=== PATIENT | male | born 1965 | race Caucasian/White ===

== ENCOUNTER 2022-11-15 13:58 | Inpatient (IN) | payer OTHER ==
[2022-11-15 14:23] VITALS: BMI 26.4
[2022-11-15] MEDS ORDERED: BISMUTH SUBSALICYLATE 524 MG/30 ML PO PRN (15:05)
[2022-11-15] MEDS ORDERED: POLYETHYLENE GLYCOL (HEALTHYLAX) 3350 17 GM PACKET PO PRN (15:05)
[2022-11-15] MEDS ORDERED: BENZOCAINE/MENTHOL (CHLORASEPTIC ) LOZENGE MM PRN (15:05)
[2022-11-15] MEDS ORDERED: BUPRENORPHINE HCL 150 MCG, BUPRENORPHINE HCL 75 MCG BC ONE (15:05)
[2022-11-15] MEDS ORDERED: diazePAM 5 MG TABLET PO PRN (15:05)
[2022-11-15] MEDS ORDERED: guaiFENesin 600 MG TABLET.ER (FP) PO PRN (15:05)
[2022-11-15] MEDS ORDERED: cloNIDine HCL 0.1 MG TABLET PO ONE (15:05)
[2022-11-15] MEDS ORDERED: LOPERAMIDE HCL 2 MG CAPSULE PO PRN (15:05)
[2022-11-15] MEDS ORDERED: BUPRENORPHINE HCL 150 MCG, BUPRENORPHINE HCL 75 MCG BC PRN (15:05)
[2022-11-15] MEDS ORDERED: ONDANSETRON *ODT* 4 MG TABLET SL PRN (15:05)
[2022-11-15] MEDS ORDERED: NICOTINE 10 MG CARTRIDGE (INHALER) IH PRN (15:05)
[2022-11-15] MEDS ORDERED: IBUPROFEN 600 MG TABLET (FP) PO PRN (15:05)
[2022-11-15] MEDS ORDERED: DICYCLOMINE HCL 10 MG CAPSULE PO PRN (15:05)
[2022-11-15] MEDS ORDERED: NALOXONE HCL 0.4 MG/ML VIAL IM PRN (15:05)
[2022-11-15] MEDS ORDERED: BENZONATATE 200 MG CAPSULE PO PRN (15:05)
[2022-11-15] MEDS ORDERED: IBUPROFEN 400 MG TABLET (FP) PO PRN (15:05)
[2022-11-15] MEDS ORDERED: MAG HYDROX/AL HYDROX/SIMETH 30 ML UNIT-DOSE CUP PO PRN (15:05)
[2022-11-15] MEDS ORDERED: NALOXONE HCL (KLOXXADO) 8 MG SPRAY NS PRN (15:05)
[2022-11-15] MEDS ORDERED: ACETAMINOPHEN 325 MG TABLET (FP) PO PRN (15:05)
[2022-11-15] MEDS ORDERED: hydrOXYzine PAMOATE 25 MG CAPSULE (FP) PO PRN (15:05)
[2022-11-15] MEDS ORDERED: MAGNESIUM HYDROX 2400MG/30ML ORAL SUSPENSION 30 ML CUP PO PRN (15:05)
[2022-11-15] MEDS ORDERED: BUPRENORPHINE HCL 150 MCG FILM BC ONE (16:57)
[2022-11-15] MEDS ORDERED: BUPRENORPHINE HCL 75 MCG FILM BC ONE (16:58)
[2022-11-15] MEDS ORDERED: cloNIDine HCL 0.1 MG TABLET ONE (16:58)
[2022-11-15] MEDS ORDERED: TUBERCULIN PPD 5 TU/0.1ML VIAL ID ONE (17:40)
[2022-11-15] MEDS: PRENATAL VITAMINS W/ FOLIC ACID TABLET (FP) PO SCH (17:52)
[2022-11-15] MEDS: NICOTINE 14 MG/24 HOURS TOPICAL PATCH TD SCH (17:52)
[2022-11-15] MEDS: MELATONIN 5 MG TABLETS PO SCH (22:47)
[2022-11-15] MEDS: THIAMINE HCL 100 MG TABLET (FP) PO SCH (22:47)
[2022-11-15] MEDS: METHOCARBAMOL 500 MG TABLET PO PRN (22:48)
[2022-11-16] MEDS ORDERED: BUPRENORPHINE HCL 150 MCG, BUPRENORPHINE HCL 75 MCG BC PRN
[2022-11-16] MEDS: BUPRENORPHINE HCL 150 MCG, BUPRENORPHINE HCL 75 MCG BC SCH ×2 (06:09→18:02)
[2022-11-16] MEDS: NICOTINE 14 MG/24 HOURS TOPICAL PATCH TD SCH (10:49)
[2022-11-16] MEDS: PRENATAL VITAMINS W/ FOLIC ACID TABLET (FP) PO SCH (10:49)
[2022-11-16 11:39] LABS: CALCIUM 9.1 mg/dL (8.5-10.1)
[2022-11-16 11:40] LABS: ALBUMIN 3.9 g/dl (3.4-5.0); BLOOD UREA NITROGEN 15.1 mg/dL (7-18); HEMATOCRIT 38.9 % (35.4-49); HEMOGLOBIN 13.4 GM/dL (11.7-16.9); MCH 31.9 pg (25.7-33.7); MCHC 34.4 g/dl (32.0-35.9); MEAN CELL VOLUME 92.7 fl (80-96); MEAN PLT VOLUME 9.8 fl (7.5-11.1); PLATELET COUNT 215 10^3/uL (134-434); RDW 13.9 % (11.9-15.9); WHITE BLOOD COUNT 10.8 K/mm3 (4.0-10.0)
[2022-11-16 11:43] LABS: CREATININE 1.1 mg/dL (0.55-1.3)
[2022-11-16 11:44] LABS: TOT PROT 7.2 g/dl (6.4-8.2)
[2022-11-16 11:45] LABS: BILIRUBIN,TOTAL 0.6 mg/dL (0.2-1)
[2022-11-16] MEDS ORDERED: ONDANSETRON *ODT* 4 MG TABLET SL PRN (20:50)
[2022-11-16] MEDS ORDERED: TRIMETHOBENZAMIDE HCL 200MG/2ML INJ IM ONE (22:37)
[2022-11-16] MEDS ORDERED: methaDONE HCL 10 MG TABLET (FOR DETOX USE ONLY) PO ONE (23:10)
[2022-11-16] MEDS ORDERED: diazePAM 5 MG TABLET PO PRN (23:11)
[2022-11-16] MEDS: METHOCARBAMOL 500 MG TABLET PO PRN (23:28)
[2022-11-16] MEDS: cloNIDine HCL 0.1 MG TABLET PO PRN (23:28)
[2022-11-16] MEDS: MELATONIN 5 MG TABLETS PO SCH (23:28)
[2022-11-16] MEDS: THIAMINE HCL 100 MG TABLET (FP) PO SCH (23:28)
[2022-11-17] MEDS ORDERED: BUPRENORPHINE HCL 450 MCG FILM BC SCH (06:00)
[2022-11-17] MEDS ORDERED: methaDONE HCL 10 MG TABLET (FOR DETOX USE ONLY) PO ONE (10:00)
[2022-11-17] MEDS: PRENATAL VITAMINS W/ FOLIC ACID TABLET (FP) PO SCH (10:51)
[2022-11-17] MEDS: NICOTINE 14 MG/24 HOURS TOPICAL PATCH TD SCH (10:54)
[2022-11-17] MEDS ORDERED: TRIMETHOBENZAMIDE HCL 200MG/2ML INJ IM PRN (11:35)
[2022-11-17 15:58] VITALS: RESP 18
[2022-11-17] MEDS: METHOCARBAMOL 500 MG TABLET PO PRN (19:14)
[2022-11-17] MEDS: cloNIDine HCL 0.1 MG TABLET PO PRN (19:14)
[2022-11-17 19:50] VITALS: BP 136/66; PULSE 74; TEMP 97.6
[2022-11-18] MEDS ORDERED: BUPRENORPHINE/NALOXONE 4 MG/1 MG FILM PACKET SL SCH (06:00)
[2022-11-19] MEDS ORDERED: BUPRENORPHINE/NALOXONE 8 MG/2 MG FILM PACKET SL ONE (06:00)
== END 2022-11-17 19:50 | disposition left against medical advice (07) | DRG 770 ==
LOC: YASAS 13:58 → Y3N 15:46
PROVIDERS: ADMIT Allergy & Immunology; ATTEND Surgery
PROC: HZ2ZZZZ Detoxification Services for Substance Abuse Treatment (ICD-10-PCS; principal; 2022-11-15)
DX: F11.23 Opioid dependence with withdrawal (principal); F10.10 Alcohol abuse, uncomplicated; F14.10 Cocaine abuse, uncomplicated; F17.210 Nicotine dependence, cigarettes, uncomplicated; M54.40 Lumbago with sciatica, unspecified side; G89.29 Other chronic pain; M50.920 Unspecified cervical disc disorder, mid-cervical region, unspecified level
CPT/HCPCS: 36415; 80053; 85027; 86780; 93005; 93010; C9803-CS; Q0162; U0003; U0005

== ENCOUNTER 2024-08-05 13:29 | Inpatient (IN) | payer BC ==
[2024-08-05] MEDS ORDERED: POLYETHYLENE GLYCOL (HEALTHYLAX) 3350 17 GM PACKET PO PRN (15:28)
[2024-08-05] MEDS ORDERED: MAGNESIUM HYDROX 2400MG/30ML ORAL SUSPENSION 30 ML CUP PO PRN (15:28)
[2024-08-05] MEDS ORDERED: IBUPROFEN 400 MG TABLET (FP) PO PRN (15:28)
[2024-08-05] MEDS ORDERED: ACETAMINOPHEN 325 MG TABLET (FP) PO PRN (15:28)
[2024-08-05] MEDS ORDERED: ONDANSETRON *ODT* 4 MG TABLET SL PRN (15:28)
[2024-08-05] MEDS ORDERED: BENZOCAINE/MENTHOL (CHLORASEPTIC ) LOZENGE MM PRN (15:28)
[2024-08-05] MEDS ORDERED: BENZONATATE 200 MG CAPSULE PO PRN (15:28)
[2024-08-05] MEDS ORDERED: methaDONE HCL 10 MG TABLET (FOR DETOX USE ONLY) PO PRN (15:28)
[2024-08-05] MEDS ORDERED: guaiFENesin 600 MG TABLET.ER (FP) PO PRN (15:28)
[2024-08-05] MEDS ORDERED: DICYCLOMINE HCL 10 MG CAPSULE PO PRN (15:28)
[2024-08-05] MEDS ORDERED: IBUPROFEN 600 MG TABLET (FP) PO PRN (15:28)
[2024-08-05] MEDS ORDERED: NALOXONE (NARCAN) HCL 4 MG/0.1 ML SPRAY NS PRN (15:28)
[2024-08-05] MEDS ORDERED: MAG HYDROX/AL HYDROX/SIMETH 30 ML UNIT-DOSE CUP PO PRN (15:28)
[2024-08-05] MEDS ORDERED: LOPERAMIDE HCL 2 MG CAPSULE PO PRN (15:28)
[2024-08-05] MEDS ORDERED: BISMUTH SUBSALICYLATE 524 MG/30 ML PO PRN (15:28)
[2024-08-05 16:44] VITALS: BMI 25.7
[2024-08-05] MEDS ORDERED: methaDONE HCL 10 MG TABLET (FOR DETOX USE ONLY) ONE (17:30)
[2024-08-05] MEDS: methaDONE HCL 10 MG TABLET (FOR DETOX USE ONLY) PO ONE (17:35)
[2024-08-05] MEDS: NICOTINE 21 MG/24 HOURS TOPICAL PATCH TD SCH (18:30)
[2024-08-05] MEDS: diazePAM 5 MG TABLET PO SCH (22:18)
[2024-08-05] MEDS: CARVEDILOL 6.25 MG TABLET (FP) PO SCH (22:18)
[2024-08-05] MEDS: MELATONIN 5 MG TABLETS PO SCH (22:18)
[2024-08-05] MEDS: ATORVASTATIN CA 80 MG TABLET (FP) PO SCH (22:18)
[2024-08-05] MEDS: THIAMINE 100 MG TABLET PO SCH (22:18)
[2024-08-06] MEDS: SACUBITRIL/VALSARTAN 49 MG-51 MG TABLET PO SCH (00:04)
[2024-08-06] MEDS: LEVOTHYROXINE 100 MCG, LEVOTHYROXINE 50 MCG PO SCH (06:42)
[2024-08-06] MEDS ORDERED: LEVOTHYROXINE NA 150 MCG TABLET PO SCH (07:00)
[2024-08-06] MEDS: PRENATAL VITAMINS W/ FOLIC ACID TABLET (FP) PO SCH (10:11)
[2024-08-06] MEDS: methaDONE HCL 10 MG TABLET (FOR DETOX USE ONLY) PO ONE (10:11)
[2024-08-06] MEDS: ASPIRIN COATED 81 MG TABLET.EC PO SCH (10:13)
[2024-08-06] MEDS: EMPAGLIFLOZIN (JARDIANCE) 10 MG TABLET PO SCH (10:49)
[2024-08-06 11:30] LABS: HEMOGLOBIN 12.3 GM/dL (11.7-16.9); MCH 30.5 pg (25.7-33.7); MCHC 33.1 g/dl (32.0-35.9); MEAN PLT VOLUME 9.3 fl (7.5-11.1); PLATELET COUNT 196 10^3/uL (134-434); RBC 4.02 M/mm3 (4.00-5.60); RDW 15.3 % (11.9-15.9); WHITE BLOOD COUNT 8.6 K/mm3 (4.0-10.0)
[2024-08-06 11:56] LABS: CHLORIDE 105 mmol/L (98-107); POTASSIUM 3.9 mmol/L (3.5-5.1); SODIUM 140 mmol/L (136-145)
[2024-08-06 12:00] LABS: ALBUMIN 3.4 g/dl (3.4-5.0); ANION GAP 7 mmol/L (4-13); CALCIUM 8.5 mg/dL (8.5-10.1); CO2 28 mmol/L (21-32); GLUCOSE,RANDOM 118 mg/dL (74-106)
[2024-08-06 12:01] LABS: BLOOD UREA NITROGEN 17.9 mg/dL (7-18)
[2024-08-06 12:03] LABS: CREATININE 1.2 mg/dL (0.55-1.3); SGPT/ALT 38 U/L (13-61)
[2024-08-06 12:04] LABS: SGOT/AST 28 U/L (15-37)
[2024-08-06 12:05] LABS: BILIRUBIN,TOTAL 0.4 mg/dL (0.2-1); TOT PROT 6.2 g/dl (6.4-8.2)
[2024-08-06 12:06] LABS: ALK PHOS 92 U/L (45-117)
[2024-08-06] MEDS: METHOCARBAMOL 500 MG TABLET PO PRN (17:25)
[2024-08-06] MEDS: hydrOXYzine PAMOATE 25 MG CAPSULE (FP) PO PRN (17:25)
[2024-08-07] MEDS: diazePAM 5 MG TABLET PO SCH (05:23)
[2024-08-07] MEDS: cloNIDine HCL 0.1 MG TABLET PO PRN (22:06)
[2024-08-08] MEDS: diazePAM 5 MG TABLET PO SCH (05:32)
[2024-08-08] MEDS: methaDONE HCL 10 MG TABLET (FOR DETOX USE ONLY) PO ONE (10:24)
[2024-08-08] MEDS: diazePAM 5 MG TABLET PO PRN (13:01)
[2024-08-09] MEDS: diazePAM 5 MG TABLET PO ONE (05:21)
[2024-08-09 13:45] VITALS: BP 102/62; PULSE 80; RESP 16; TEMP 97.8
[2024-08-09] MEDS: NALOXONE (NYS OPIOID OVERDOSE PROGRAM) 4 MG/0.1 ML SPRAY NS SCH (16:58)
[2024-08-10] MEDS ORDERED: methaDONE HCL 10 MG TABLET (FOR DETOX USE ONLY) PO ONE (10:00)
== END 2024-08-09 16:33 | disposition home or self-care (01) | DRG 773 ==
LOC: YASAS 13:29 → Y3N 16:55
PROVIDERS: ADMIT Allergy & Immunology; ATTEND Surgery
PROC: HZ2ZZZZ Detoxification Services for Substance Abuse Treatment (ICD-10-PCS; principal; 2024-08-05)
DX: F11.23 Opioid dependence with withdrawal (principal); F10.230 Alcohol dependence with withdrawal, uncomplicated; F14.20 Cocaine dependence, uncomplicated; E78.5 Hyperlipidemia, unspecified; I11.0 Hypertensive heart disease with heart failure; I50.9 Heart failure, unspecified; E03.9 Hypothyroidism, unspecified; E11.9 Type 2 diabetes mellitus without complications; Z79.84 Long term (current) use of oral hypoglycemic drugs; M50.920 Unspecified cervical disc disorder, mid-cervical region, unspecified level; M54.40 Lumbago with sciatica, unspecified side; G89.29 Other chronic pain
CPT/HCPCS: 36415; 80053; 80307; 82962; 85027; 86780; 93005; 93010